=== PATIENT | female | born 1955 | race Caucasian/White ===

== ENCOUNTER 2020-04-26 13:18 | Emergency (ER) | payer BC, OTHER ==
[~2020-04-26] VITALS: Ht 175.3 cm; Wt 88.0 kg
--- NOTE | 2020-04-26 13:35 | NUR ---
C-COLLAR PLACED IN TRIAGE
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
--- NOTE | 2020-04-26 14:28 | NUR ---
PT IN XRAY.
[2020-04-26] MEDS ORDERED: KETOROLAC 30 MG/1 ML ONE (15:20)
[2020-04-26] MEDS ORDERED: KETOROLAC 30 MG/1 ML IM ONE (15:30)
[2020-04-26 15:45] VITALS: BP 120/80
== END 2020-04-26 15:51 | disposition home or self-care (01) ==
LOC: ED 14:07
DX: S16.1XXA Strain of muscle, fascia and tendon at neck level, initial encounter (principal); M25.512 Pain in left shoulder; V49.09XA Driver injured in collision with other motor vehicles in nontraffic accident, initial encounter; Y93.89 Activity, other specified; Y92.488 Other paved roadways as the place of occurrence of the external cause; Y99.8 Other external cause status
CPT/HCPCS: 72020; 72050; 73030; 96372; 99284; J1885